=== PATIENT | female | born 1965 | race Caucasian/White ===

== ENCOUNTER → 2018-09-24 | Day surgery (SDC) | payer OTHER ==
[~2018-09-24] MED LIST: FENTANYL CITRATE/PF 100MCG/2 ML INJ ONE; HYOSCYAMINE SULFATE 0.5 MG/ML INJ ONE; MIDAZOLAM HCL 2 MG/2 ML VIAL ONE; NORTRIPTYLINE H50 MG PO
[2018-09-24 15:55] VITALS: BP 122/81
--- OUTSIDE RECORDS SUMMARY | 2018-09-24 16:19 | XMS REPORT | Encounter Summary ---
Author Organization Unknown Address [address] [place] [address] Phone [phone] Reason for Visit Immunization Instructions 1. Immunization Zostavax (PF) 19,400 unit/0.65 mL subcutaneous suspension 2. Counseling Discussion Note Pt is in NAD; Verbalizes understanding of all instructions with no questions at this time. Patient educational handouts: No information available. Plan of Care Patient Instructions Refer to your VIS handout as discussed in clinic today regarding your care after administration. Follow up with your PCP as needed. Reminders Provider Appointments None recorded. Lab None recorded. Referral None recorded. Procedures None recorded. Surgeries None recorded. Imaging None recorded. Medications Name Start Date benzonatate 100 mg capsule TK ONE C PO QD PRN Botox 100 unit injection clonazepam 0.5 mg tablet clonazepam 1 mg tablet duloxetine 30 mg capsule,delayed release TK 1 C PO QD IN THE AFTERNOON duloxetine 60 mg capsule,delayed release TK 1 C PO QD IN THE MORNING Fluvirin 8484-8558 45 mcg (15 mcg x 3)/0.5 mL intramuscular suspension ADM 0.5ML IM UTD hydrocodone 5 mg-acetaminophen 325 mg tablet nortriptyline 25 mg capsule nortriptyline 50 mg capsule TK 2 CS PO QHS omeprazole 40 mg capsule,delayed release pantoprazole 40 mg tablet,delayed release TK 1 T PO QD sumatriptan 100 mg tablet tramadol 50 mg tablet TK 1 T PO Q 6 H PRN P zolpidem 5 mg tablet TK 1 T PO QD HS Medications Administered None recorded. Vitals Height Weight BMI 5 ft 1.5 in 110 lbs 20.4 Lab Results None recorded. Allergies Code Code System Name Reaction Severity Onset NKDA Problems None recorded. Procedures None recorded. Vaccine List Vaccine Type influenza, unspecified formulation 05/28/2016 zoster 11/25/20160.65 mL Social History None recorded. Past Encounters 11/25/2016 Immunization; Counseling Nancy Grossman, JANELL-C: [address] [place] [address], Ph. History of Present Illness Immunization Reported By: Patient HPI: Immunization Request (normal) no symptoms. Immunization eligibility questions No vaccines in last month, No reaction to previous vaccines:, No Known Allergies Review of Systems Basic Reported By: Patient Constitutional: Constitutional: no fever Eyes: Eyes: no eye complaints Nrmt-Igzb-Myfzq-Throat: Ears: no ear complaints. Nose: no nose/sinus problems. Mouth/Throat: no sore throat, no bleeding gums, no mouth complaints, no teeth problems Cardiovascular: Cardiovascular: no chest pain, no shortness of breath, no known heart murmur Respiratory: Respiratory: no cough, no wheezing, no shortness of breath Gastrointestinal: Gastrointestinal: no abdominal pain, no vomiting / diarrhea Genitourinary: Genitourinary: no urinary complaints, no discharge Musculoskeletal: Musculoskeletal: no muscle aches, no muscle weakness, no arthralgias/joint pain, no back pain Skin: Skin: no abnormal / changing mole, no jaundice, no rashes Neurologic: Neurologic: no loss of consciousness, no weakness, no numbness, no seizures, no dizziness, no headaches Physical Exam Immunization Reported By: Patient General Appearance: General: well-developed, well-nourished, no acute distress
--- OUTSIDE RECORDS SUMMARY | 2018-09-24 16:19 | XMS REPORT | Continuity of Care Document ---
Author Author [facility] Interface Address Unknown Phone Unavailable Problems Problem Status Onset Date Classification Date Reported Comments Source Immunization 11/25/2016 Diagnosis 11/25/2016 [facility] Counseling 11/25/2016 Diagnosis 11/25/2016 [facility] Medications Medication Details Route Status Patient Instructions Ordering Provider Order Date Source benzonatate 100 MG Oral Capsule benzonatate 100 mg capsule TK ONE C PO QD PRN Active [facility] onabotulinumtoxinA 100 UNT Injection [Botox] Botox 100 unit injection Active [facility] Clonazepam 0.5 MG Oral Tablet clonazepam 0.5 mg tablet Active [facility] Clonazepam 1 MG Oral Tablet clonazepam 1 mg tablet Active [facility] duloxetine 30 MG Delayed Release Oral Capsule duloxetine 30 mg capsule,delayed release TK 1 C PO QD IN THE AFTERNOON Active [facility] duloxetine 60 MG Delayed Release Oral Capsule duloxetine 60 mg capsule,delayed release TK 1 C PO QD IN THE MORNING Active [facility] influenza A virus A/[facility] (H1N1) antigen 0.03 MG/ML / influenza A virus A/ (H3N2) antigen 0.03 MG/ML / influenza B virus B/ antigen 0.03 MG/ML Injectable Suspension [Fluvirin ] Fluvirin 8552-2853 45 mcg (15 mcg x 3)/0.5 mL intramuscular suspension ADM 0.5ML IM UTD Active [facility] Acetaminophen 325 MG / Hydrocodone Bitartrate 5 MG Oral Tablet hydrocodone 5 mg-acetaminophen 325 mg tablet Active [facility] Nortriptyline 25 MG Oral Capsule nortriptyline 25 mg capsule Active [facility] Nortriptyline 50 MG Oral Capsule nortriptyline 50 mg capsule TK 2 CS PO QHS Active [facility] Omeprazole 40 MG Delayed Release Oral Capsule omeprazole 40 mg capsule,delayed release Active [facility] pantoprazole 40 MG Delayed Release Oral Tablet pantoprazole 40 mg tablet,delayed release TK 1 T PO QD Active [facility] Sumatriptan 100 MG Oral Tablet sumatriptan 100 mg tablet Active [facility] tramadol hydrochloride 50 MG Oral Tablet tramadol 50 mg tablet TK 1 T PO Q 6 H PRN P Active [facility] Zolpidem tartrate 5 MG Oral Tablet zolpidem 5 mg tablet TK 1 T PO QD HS Active [facility] Allergies, Adverse Reactions, Alerts Substance Category Reaction Severity Reaction type Status Date Reported Comments Source Immunizations Immunization Date Given Site Status Last Updated Comments Source zoster 11/25/2016 completed [facility] influenza, unspecified formulation 05/29/2016 completed [facility] Results Order Name Results Value Reference Range Date Interpretation Comments Source Vital Signs Vital Sign Value Date Comments Source Height 61.5 11/25/2016 [facility] Weight 110 11/25/2016 [facility] Encounters Location Location Details Encounter Type Encounter Number Reason For Visit Attending Provider ADM Date DC Date Status Source [place] - [facility] - [id number] MaloneP-C: [address] [place] [address], Ph. [id number] Nancy Grossman 11/25/2016 [facility] [place] - [facility] - [id number] MaloneP-C: [address] [place] [address], Ph. [id number] Nancy Grossman 11/25/2016 [facility] [place] - [facility] - [id number] Grossman [employer]-C: [address] [place] [address], Ph. [id number] Nancy Grossman 11/25/2016 [facility] Procedures Procedure Code Date Perfomer Comments Source
--- OUTSIDE RECORDS SUMMARY | 2018-09-24 16:19 | XMS REPORT | Encounter Summary ---
Author Organization Unknown Address [address] [place] [address] Phone [phone] Reason for Visit Immunization Instructions 1. Immunization Zostavax (PF) 19,400 unit/0.65 mL subcutaneous suspension Discussion Note Pt is in NAD; Verbalizes [...] C PO QD IN THE MORNING Fluvirin 5403-5280 45 mcg (15 mcg x 3)/0.5 mL [...] Procedures None recorded. Vaccine List Vaccine Type zoster 11/25/20160.65 mL Social History None recorded. Past Encounters 11/25/2016 Immunization Nancy Grossman, JANELL-C: [address] [facility], [place] [address], Ph. History of Present Illness Immunization Reported By: Patient HPI: Immunization Request (normal) no symptoms. Immunization eligibility questions No vaccines in last month, No reaction to previous vaccines:, No Known Allergies Review of Systems Basic Reported By: Patient Constitutional: Constitutional: no fever Physical Exam Immunization Reported By: Patient General Appearance: General: well-developed, well-nourished, no acute distress
--- OUTSIDE RECORDS SUMMARY | 2018-09-24 16:19 | XMS REPORT | Encounter Summary ---
Author Organization Unknown Address [address] [place] [address] Phone [phone] Reason for Visit Immunization Instructions 1. Immunization [...] C PO QD IN THE MORNING Fluvirin 5877-7342 45 mcg (15 mcg x 3)/0.5 mL [...] Encounters 11/25/2016 Immunization Nancy Grossman, JANELL-C: [address] [facility], [place] [address], Ph. History of Present Illness Immunization Reported By: Patient HPI: Immunization Request (normal) no symptoms. Immunization eligibility questions No vaccines in last month, No reaction to previous vaccines:, No Known Allergies Review of Systems Basic Reported By: Patient Constitutional: Constitutional: no fever Eyes: Eyes: no eye complaints Uszp-Qszy-Iexbh-Throat: Ears: no ear complaints. Nose: no nose/sinus [...]
--- NOTE | 2018-09-24 22:37 | Operative Report ---
DATE OF PROCEDURE: 09/24/2018 SURGEON: Shaan Ashby MD PROCEDURES: EGD with biopsies and esophageal dilatation and colonoscopy. INDICATIONS FOR EGD: Dysphagia, acid reflux. INDICATIONS FOR COLONOSCOPY: Colorectal cancer screening. MEDICATIONS: The patient was done under MAC, please see anesthesiologist's note. PROCEDURE IN DETAIL: With the patient in left lateral decubitus position, a flexible fiberoptic Olympus gastroscope was introduced into the esophagus under direct visualization without any difficulty. There was some patchy erythema noted in distal esophagus. An approximately 6 mm ulcer was noted just above the GE junction. A minute tongue of velvety red mucosa was noted to extend proximally from the GE junction and biopsies were obtained to rule out Cummings. There was a mild stricture noted at the GE junction that was dilated to size 52-Tongan Schumacher. The scope was then advanced with ease into the stomach traversing a small sliding hiatal hernia. Mucosa overlying the antrum and the body revealed some patchy erythema and vels-na-rsrvuwiw edema. Biopsies were obtained and sent to stain for H pylori. Pylorus was of normal contour and shape, it was intubated with ease and the scope was advanced all the way to the second portion of the duodenum. Biopsies were obtained from the proximal second portion and a duodenal bulb to rule out sprue. The scope was then withdrawn back into the stomach and retroflexed. Mucosa overlying the fundus and cardia appeared to be within normal limits. The scope was then straightened out and it was subsequently withdrawn. The patient tolerated the procedure well. IMPRESSION: 1. Distal esophagitis. 2. Approximately 6 mm ulcer in distal esophagus just above the gastroesophageal junction without active bleeding or stigmata of recent hemorrhage. 3. Rule out Cummings esophagus. 4. Esophageal stricture and gastroesophageal junction dilated to size 52-Tongan Schumacher. 5. Small hiatal hernia. 6. Gastritis, biopsied. Biopsies sent to stain for Helicobacter pylori. 7. Rule out sprue. PLAN: Follow up histology. Initiate Protonix 40 mg 1 p.o. q.a.m. a.c. PROCEDURE IN DETAIL: The patient was then turned around and after adequate lubrication of the anal canal, flexible fiberoptic Olympus colonoscope was inserted into the rectum with ease and advanced all the way to the cecum. The scope was then withdrawn slowly. Mucosa overlying the cecum, ascending colon, transverse colon, descending, sigmoid, and rectum grossly appeared to be within normal limits. The scope was then retroflexed into the distal rectum and small internal hemorrhoids were noted, none of which was actively bleeding. The scope was then straightened out and it was subsequently withdrawn. The patient tolerated the procedure well. IMPRESSION: Internal hemorrhoids, none actively bleeding. PLAN: Initiate high-fiber and low-fat diet. Initiate high-fiber supplement. Start Linzess 145 mcg 1 p.o. q.a.m. a.c. The patient might benefit from a followup colonoscopy in 10 years. Shaan Ashby MD [facility] [place]/MODL /[id number] cc: hPil Scanlon DO
== END | disposition home or self-care (01) ==
LOC: OR 12:28
PROVIDERS: ATTEND Internal Medicine Gastroenterology
DX: Z12.11 Encounter for screening for malignant neoplasm of colon (principal); K29.70 Gastritis, unspecified, without bleeding; K22.2 Esophageal obstruction; K22.10 Ulcer of esophagus without bleeding; K58.9 Irritable bowel syndrome, unspecified; K21.9 Gastro-esophageal reflux disease without esophagitis; K44.9 Diaphragmatic hernia without obstruction or gangrene; K22.8 Other specified diseases of esophagus; K64.8 Other hemorrhoids; G43.909 Migraine, unspecified, not intractable, without status migrainosus; M06.9 Rheumatoid arthritis, unspecified; G47.33 Obstructive sleep apnea (adult) (pediatric); F17.210 Nicotine dependence, cigarettes, uncomplicated; Z01.810 Encounter for preprocedural cardiovascular examination
CPT/HCPCS: 43239; 43450; 45378; 93005; J1980; J2250

== ENCOUNTER → 2020-07-14 | Outpatient (CLI) | payer OTHER ==
[~2020-07-14] MED LIST changes: +COVID-19 VACC, MRNA(MODERNA)/PF 100 MCG/0.5 ML VIAL IM ONE; -FENTANYL CITRATE/PF 100MCG/2 ML INJ ONE; -HYOSCYAMINE SULFATE 0.5 MG/ML INJ ONE; -MIDAZOLAM HCL 2 MG/2 ML VIAL ONE
== END | disposition home or self-care (01) ==
LOC: VACCPMC 10:00
DX: Z23 Encounter for immunization (principal); Z20.822 Contact with and (suspected) exposure to COVID-19

== ENCOUNTER → 2020-08-11 | Outpatient (CLI) | payer OTHER | END | DRG 951 | LOC: VACCPMC 10:42 | DX: Z23 Encounter for immunization (principal); Z20.822 Contact with and (suspected) exposure to COVID-19 | CPT/HCPCS: 0012A; 91301 ==